=== PATIENT | female | born 1950 | race Caucasian/White ===

== ENCOUNTER 2018-03-17 03:58 | Inpatient (IN) | payer OTHER, BC ==
--- NOTE | 2018-03-17 04:40 | PDOC ---
History of Present Illness - General Chief Complaint: Pain Stated Complaint: PAIN RIGHT SIDE Time Seen by Provider: 03/17/18 04:22 - History of Present Illness Initial Comments: 03/17/18 04:29 67 yo F with h/o HTN, cholecystectomy, chronic R hip pain, who p/w with 1 week of R sided abdominal, flank, and posterior back pain. States that pain is worse with pressure, and she has to sleep in erect position leaning forward. Also endorses 3 days of BL leg swelling. Reports daily Advil use and Tramadol TID, with no improvement in pain. Nml bowel movements. Denies F/C, cough, hemoptysis, orthopnea, PND, leg swelling/pain, N/V, CP, SOB , abdominal pain, diarrhea, constipation, urinary complaints, hematuria, weakness, lightheadedness, sensory changes. Patient in ED (03/15/18) for similar presentation. CT AP ( 03/15/18) with known pulmonary nodules. No other significant findings. Patient was treated for UTI with Keflex. H/o HTN. Did not take Metoprolol today. Recently seen in ED PMHx: as noted above ROS: as noted above Past History - Past Medical History Allergies/Adverse Reactions: Allergies Allergy/AdvReac Type Severity Reaction Status Date / Time No Known Allergies Allergy Verified 03/17/18 04:26 Home Medications: Ambulatory Orders Metoprolol Tartrate 100 mg PO DAILY 03/17/18 Tramadol HCl 50 mg PO PRN 03/17/18 COPD: No HTN: Yes - Surgical History Cholecystectomy: Yes - Suicide/Smoking/Psychosocial Hx Smoking History: Never smoked Review of Systems - Review of Systems Comments:: 03/17/18 04:29 GENERAL/CONSTITUTIONAL: No fever or chills. No weakness. HEAD, EYES, EARS, NOSE AND THROAT: No change in vision. No ear pain or discharge. No sore throat. CARDIOVASCULAR: No chest pain or shortness of breath RESPIRATORY: No cough, wheezing, or hemoptysis. GASTROINTESTINAL: No nausea, vomiting, diarrhea or constipation. GENITOURINARY: No dysuria, frequency, or change in urination. MUSCULOSKELETAL: + R sided flank and back pain. No joint or muscle swelling or pain. No neck or back pain. SKIN: No rash NEUROLOGIC: No headache, vertigo, loss of consciousness, or change in strength/ sensation. ENDOCRINE: No increased thirst. No abnormal weight change HEMATOLOGIC/LYMPHATIC: No anemia, easy bleeding, or history of blood clots. ALLERGIC/IMMUNOLOGIC: No hives or skin allergy. *Physical Exam - Physical Exam Comments: 03/17/18 04:29 GENERAL: Awake, alert, and fully oriented, in no acute distress HEAD: No signs of trauma, normocephalic, atraumatic EYES: PERRLA, EOMI, sclera anicteric, conjunctiva clear ENT: Hearing grossly normal, nares patent, oropharynx clear without exudates. Moist mucosa NECK: Normal ROM, supple, no lymphadenopathy, JVD, or masses LUNGS: No distress, speaks full sentences, clear to auscultation bilaterally HEART: Regular rate and rhythm, normal S1 and S2, no murmurs, rubs or gallops, peripheral pulses normal and equal bilaterally. ABDOMEN: + R sided flank and posterior chest wall ttp. Soft, nontender, normoactive bowel sounds. No guarding, no rebound. No masses EXTREMITIES :BL LE edema. Normal inspection, Normal range of motion. No clubbing or cyanosis. SKIN: Warm, Dry, normal turgor, no rashes or lesions noted ED Treatment Course - LABORATORY CBC & Chemistry Diagram: 03/17/18 05:30 03/17/18 05:30 Medical Decision Making - Medical Decision Making 03/17/18 05:15 67 yo F with h/o HTN, cholecystectomy, chronic R hip pain, who p/w with sided abdominal, flank, and posterior back pain. VSS, AF, A&OX3. + Right sided flank and posterior chest wall ttp. + BL LE edema. Recent UTI ( 03/15/18). Low suspicion of pyelonephrits. Patient AF, non toxic appearing, and neg CVA ttp. Possible MSK etiology pain vs. biliary disease. Differential also includes PNA, pancreatitis, nephrolithiasis, CHF. ED Course: CBC,CMP, Lipase, BNP, Cardiac Pr. EKG, UA 03/17/18 06:42 CBC: Unremarkable UA: Neg EKG: Sinus bradycardia with nml interval duration and axis. Neg LUZMARIA, or STD. LVH. RUQ U/S pending. AST 44/110 ALK phosp: 143 Patient VSS, and signed out to day team. *DC/Admit/Observation/Transfer Diagnosis at time of Disposition: Right flank pain - Referrals Referrals: Alberto Floyd MD [Primary Care Provider] - - Patient Instructions Printed Discharge Instructions: DI for Flank Pain Additional Instructions: Please return to the emergency department with any new or worsening symptoms or concerns. Please follow up with your primary care physician within 72 hours. - Post Discharge Activity - Attestations Physician Attestion: 03/17/18 04:30 I attest to the information provided in this note.
[2018-03-17] MEDS ORDERED: KETOROLAC TROMETHAMINE 30 MG/1 ML VIAL IVPUSH ONE (05:14)
[2018-03-17] MEDS ORDERED: KETOROLAC TROMETHAMINE 30 MG/1 ML VIAL ONE (05:18)
[2018-03-17 06:14] LABS: BASO % 1.1 % (0-2.0); EOS % 2.1 % (0-4.5); HEMATOCRIT 36.8 % (32.4-45.2); HEMOGLOBIN 12.8 GM/dL (10.7-15.3); LYMPH % 25.8 % (8-40); MCH 31.1 pg (25.7-33.7); MCHC 34.9 g/dl (32.0-36.0); MEAN CELL VOLUME 89.1 fl (80-96); MEAN PLT VOLUME 8.4 fl (7.5-11.1); MONO % 9.7 % (3.8-10.2); NEUT % 61.3 % (42.8-82.8); PLATELET COUNT 288 K/MM3 (134-434); RBC 4.13 M/mm3 (3.60-5.2); RDW 13.7 % (11.6-15.6); WHITE BLOOD COUNT 6.6 K/mm3 (4.0-10.0)
[2018-03-17 06:18] LABS: URINE APPEARANCE CLEAR; URINE BILIRUBIN NEGATIVE (<2.0 mg/dL); URINE COLOR COLORLESS; URINE GLUCOSE (UA) NEGATIVE (NEGATIVE); URINE KETONE NEGATIVE (NEGATIVE); URINE LEUK ESTERASE NEGATIVE (NEGATIVE); URINE NITRITE NEGATIVE (NEGATIVE); URINE PROTEIN NEGATIVE (NEGATIVE); URINE UROBILINOGEN NEGATIVE mg/dL (0.2-1.0)
[2018-03-17 06:41] LABS: ANION GAP 9 (8-16); BILIRUBIN,TOTAL 0.4 mg/dL (0.2-1.0); BLOOD UREA NITROGEN 9 mg/dL (7-18); CALCIUM 8.3 mg/dL (8.5-10.1); CHLORIDE 93 mmol/L (98-107); CO2 26 mmol/L (21-32); CREATININE 0.8 mg/dL (0.55-1.02); GLUCOSE,RANDOM 99 mg/dL (74-106); POTASSIUM 3.4 mmol/L (3.5-5.1); SGOT/AST 44 U/L (15-37); SGPT/ALT 110 U/L (12-78); SODIUM 128 mmol/L (136-145); TOT PROT 6.9 g/dl (6.4-8.2)
[2018-03-17 06:42] LABS: ALK PHOS 183 U/L (45-117)
--- NOTE | 2018-03-17 06:43 | PDOC ---
Attending Attestation - Resident Resident Name: Ramrio Fung - ED Attending Attestation I have performed the following: I have examined & evaluated the patient, The case was reviewed & discussed with the resident, I agree w/resident's findings & plan - HPI HPI: 03/17/18 06:42 Pt comes with right flank pain. - Physicial Exam PE: 03/17/18 06:42 Agree with resident exam. 03/17/18 06:53 Pt has pain at the right flank. - Medical Decision Making 03/17/18 06:43 CBC normal; exam normal; CXR normal. vitals normal Chem pending. If chem is normal patient will be discharged home. <Lucia Brown - Last Filed: 03/17/18 06:53> Heart Score/ECG Review - ECG Intrepretation Comment:: 03/17/18 06:46 EKG performed at: 17 March 2018 at 6:37:55 Vent Rate 57 bpm MA interval 166 ms QRS duration 74 ms QT/QTc 446/434 ms P-R-T axes 31 -10 12 Sinus bradycardia Moderate voltage criteria for LVH, may be normal variant Borderline ECG <Fredo Acosta - Last Filed: 03/17/18 06:46> Attestations - Attestations 03/17/18 06:49 Documentation prepared by Fredo Acosta, acting as medical typist for Lucia Brown MD. <Fredo Acosta - Last Filed: 03/17/18 06:46>
[2018-03-17] MEDS ORDERED: METHOCARBAMOL 500 MG TABLET PO ONE (06:53)
[2018-03-17 07:02] LABS: INR 1.03 (0.82-1.09); PROTHROMBIN TIME (PATIENT) 11.6 SEC (9.7-13.0)
[2018-03-17] MEDS ORDERED: METHOCARBAMOL 500 MG TABLET ONE (07:13)
[2018-03-17] MEDS ORDERED: FUROSEMIDE 40 MG/4 ML INJECTABLE VIAL IVPUSH ONE (07:17)
[2018-03-17] MEDS ORDERED: VALSARTAN 80 MG TABLET (UD) PO ONE (07:18)
[2018-03-17] MEDS ORDERED: VALSARTAN 80 MG TABLET (UD) ONE (07:47)
[2018-03-17] MEDS ORDERED: FUROSEMIDE 40 MG/4 ML INJECTABLE VIAL ONE (07:48)
--- NOTE | 2018-03-17 08:44 | EKG ---
Test Reason : Blood Pressure : / mmHG Vent. Rate : 057 BPM Atrial Rate : 057 BPM P-R Int : 166 ms QRS Dur : 074 ms QT Int : 446 ms P-R-T Axes : 031 -10 012 degrees QTc Int : 434 ms SINUS BRADYCARDIA MODERATE VOLTAGE CRITERIA FOR LVH, MAY BE NORMAL VARIANT BORDERLINE ECG WHEN COMPARED WITH ECG OF 15-MAR-2018 11:11, VENT. RATE HAS DECREASED BY 32 BPM Confirmed by RODO REED, DANNIE ([id number]) on 03/17/2018 8:44:03 AM Referred By: Confirmed By:DANNIE KOEHLER MD
--- NOTE | 2018-03-17 09:58 | PDOC ---
*Physical Exam - Vital Signs Last Vital Signs Temp Pulse Resp BP Pulse Ox 97.9 F 67 14 145/67 98 03/17/18 07:25 03/17/18 09:37 03/17/18 09:37 03/17/18 09:37 03/17/18 09:37 ED Treatment Course - LABORATORY CBC & Chemistry Diagram: 03/17/18 05:30 03/17/18 05:30 - ADDITIONAL ORDERS Additional order review: Laboratory Results 03/17/18 03/17/18 03/17/18 05:30 05:30 05:30 PT with INR 11.60 INR 1.03 Sodium 128 L Potassium 3.4 L Chloride 93 L Carbon Dioxide 26 Anion Gap 9 BUN 9 Creatinine 0.8 Creat Clearance w eGFR > 60 Random Glucose 99 Calcium 8.3 L Total Bilirubin 0.4 D AST 44 H ALT 110 H Alkaline Phosphatase 183 H B-Natriuretic Peptide Total Protein 6.9 Albumin 3.0 L Lipase 181 Urine Color Urine Appearance Urine pH Ur Specific [place] Urine Protein Urine Glucose (UA) Urine Ketones Urine Blood Urine Nitrite Urine Bilirubin Urine Urobilinogen Ur Leukocyte Esterase 03/17/18 03/17/18 05:30 05:30 PT with INR INR Sodium Potassium Chloride Carbon Dioxide Anion Gap BUN Creatinine Creat Clearance w eGFR Random Glucose Calcium Total Bilirubin AST ALT Alkaline Phosphatase B-Natriuretic Peptide 2139.71 H Total Protein Albumin Lipase Urine Color Colorless Urine Appearance Clear Urine pH 7.0 Ur Specific [place] 1.002 Urine Protein Negative Urine Glucose (UA) Negative Urine Ketones Negative Urine Blood Negative Urine Nitrite Negative Urine Bilirubin Negative Urine Urobilinogen Negative Ur Leukocyte Esterase Negative 03/17/18 05:30 RBC 4.13 MCV 89.1 MCHC 34.9 RDW 13.7 MPV 8.4 Neutrophils % 61.3 Lymphocytes % 25.8 D Monocytes % 9.7 Eosinophils % 2.1 D Basophils % 1.1 - RADIOLOGY Radiology Studies Ordered: Category Date Time Status HIP & PELVIS-RIGHT [RAD] Stat Radiology 03/17/18 09:55 Ordered SPINE-LUMBAR SACRAL [RAD] Stat Radiology 03/17/18 09:55 Ordered DUPLEX VASCUL US-1 LEG [US] Stat Ultrasound 03/17/18 07:21 Completed - Medications Given in the ED: ED Medications Discontinued Medications Generic Name Dose Route Start Last Admin Trade Name Freq PRN Reason Stop Dose Admin Diphenhydramine HCl 50 mg 03/17/18 06:52 03/17/18 07:23 Benadryl Injection - IVPB 03/17/18 06:53 50 mg ONCE ONE Administration Furosemide 40 mg 03/17/18 07:17 03/17/18 08:00 Lasix Injection - IVPUSH 03/17/18 07:18 40 mg ONCE ONE Administration Ketorolac Tromethamine 30 mg 03/17/18 05:14 03/17/18 05:48 Toradol Injection - IVPUSH 03/17/18 05:15 30 mg ONCE ONE Administration Methocarbamol 1,000 mg 03/17/18 06:53 03/17/18 07:24 Robaxin - PO 03/17/18 06:54 1,000 mg ONCE ONE Administration Valsartan 80 mg 03/17/18 07:18 03/17/18 08:00 Diovan - PO 03/17/18 07:19 80 mg ONCE ONE Administration *DC/Admit/Observation/Transfer Diagnosis at time of Disposition: Right flank pain - Discharge Dispostion Decision to Admit order: Yes - Referrals Referrals: Alberto Floyd MD [Primary Care Provider] - - Patient Instructions Printed Discharge Instructions: DI for Flank Pain Additional Instructions: Please return to the emergency department with any new or worsening symptoms or concerns. Please follow up with your primary care physician within 72 hours. - Post Discharge Activity
[2018-03-17 13:25] VITALS: BMI 40.0
[2018-03-17] MEDS ORDERED: PNEUMOC 13-VAL CONJ-DIP CRM/PF 0.5 ML DISP.SYRIN IM ONE (16:00)
[2018-03-17] MEDS: PANTOPRAZOLE 40 MG TABLET (FP) PO SCH (18:21)
[2018-03-17] MEDS: ENOXAPARIN NA (PORCINE) 40 MG/0.4 ML DISP.SYRIN SQ SCH (18:21)
--- NOTE | 2018-03-17 18:23 | HP ---
Admitting History and Physical - Admission Chief Complaint: Rt flank pain/B/L leg swelling/ History Source: Patient Limitations to Obtaining History: No Limitations - Past Medical History Cardiovascular: Yes: HTN Hepatobiliary: Yes: Other (S/P cholecytectomy) Musculoskeletal: Yes: Chronic low back pain - Past Surgical History Past Surgical History: Yes: Cholecystectomy - Smoking History Smoking history: Never smoked Have you smoked in the past 12 months: No - Alcohol/Substance Use Hx Alcohol Use: No Home Medications - Allergies Allergies/Adverse Reactions: Allergies Allergy/AdvReac Type Severity Reaction Status Date / Time No Known Allergies Allergy Verified 03/17/18 04:26 - Home Medications Home Medications: Ambulatory Orders Metoprolol Tartrate 100 mg PO DAILY 03/17/18 Tramadol HCl 50 mg PO PRN 03/17/18 Review of Systems - Review of Systems Constitutional: reports: Malaise Gastrointestinal: reports: Abdominal Pain (Rt Flank pain) Musculoskeletal: reports: Back Pain Neurological: reports: Weakness Physical Examination Vital Signs: Vital Signs Temperature 98.1 F 03/17/18 16:28 Pulse Rate 68 03/17/18 16:28 Respiratory Rate 18 03/17/18 16:28 Blood Pressure 181/84 03/17/18 16:28 O2 Sat by Pulse Oximetry (%) 97 03/17/18 13:50 Constitutional: Yes: Anxious Eyes: Yes: Conjunctiva Clear, EOM Intact HENT: Yes: Atraumatic, Normocephalic Neck: Yes: Supple, Trachea Midline Cardiovascular: Yes: Regular Rate and Rhythm Respiratory: Yes: Regular, CTA Bilaterally Gastrointestinal: Yes: Normal Bowel Sounds (Rt Flank pain) Musculoskeletal: Yes: Joint Stiffness Edema: Yes Edema: LLE: 2+, RLE: 2+ Neurological: Yes: Alert, Oriented, Cran Nerves II-XII Intact Labs: CBC, BMP 03/17/18 05:30 03/17/18 05:30 Problem List - Problems (1) CHF (congestive heart failure), NYHA class II Code(s): I50.9 - HEART FAILURE, UNSPECIFIED (2) Right flank pain Code(s): R10.9 - UNSPECIFIED ABDOMINAL PAIN (3) Back pain Code(s): M54.9 - DORSALGIA, UNSPECIFIED (4) HTN (hypertension) Code(s): I10 - ESSENTIAL (PRIMARY) HYPERTENSION (5) Pulmonary nodule Code(s): R91.1 - SOLITARY PULMONARY NODULE (6) Hyponatremia Code(s): E87.1 - HYPO-OSMOLALITY AND HYPONATREMIA (7) Hypokalemia Code(s): E87.6 - HYPOKALEMIA Assessment/Plan (1) CHF (congestive heart failure), NYHA class II Code(s): I50.9 - HEART FAILURE, UNSPECIFIED (2) Right flank pain Code(s): R10.9 - UNSPECIFIED ABDOMINAL PAIN (3) Back pain Code(s): M54.9 - DORSALGIA, UNSPECIFIED (4) HTN (hypertension) Code(s): I10 - ESSENTIAL (PRIMARY) HYPERTENSION (5) Pulmonary nodule Code(s): R91.1 - SOLITARY PULMONARY NODULE (6) Hyponatremia Code(s): E87.1 - HYPO-OSMOLALITY AND HYPONATREMIA (7) Hypokalemia Code(s): E87.6 - HYPOKALEMIA Pt will have Xray of L/S spine/ Rt HIp Xray CT chest CT abddomen with out contrast to R/O Malignacy
[2018-03-17] MEDS ORDERED: traMADol HCL 50 MG TABLET PO SCH (19:00)
[2018-03-17] MEDS ORDERED: POTASSIUM CHLORIDE TABS 20 MEQ TABLET.ER (FP) PO ONE (21:00)
[2018-03-17] MEDS: traMADol HCL 50 MG TABLET PO PRN (21:31)
[2018-03-17] MEDS ORDERED: SODIUM PHOSPHATE/NA BIPHOS 133 ML ENEMA RC ONE (22:45)
[2018-03-17] MEDS ORDERED: MAGNESIUM HYDROX 2400MG/30ML ORAL SUSPENSION 30 ML CUP PO ONE (22:45)
[2018-03-18] MEDS ORDERED: POTASSIUM CHLORIDE TABS 20 MEQ TABLET.ER (FP) PO ONE (06:00)
[2018-03-18 09:01] LABS: CHLORIDE 95 mmol/L (98-107); POTASSIUM 3.7 mmol/L (3.5-5.1); SODIUM 130 mmol/L (136-145)
[2018-03-18 09:14] LABS: HEMATOCRIT 38.2 % (32.4-45.2); HEMOGLOBIN 13.1 GM/dL (10.7-15.3); MCH 30.8 pg (25.7-33.7); MCHC 34.4 g/dl (32.0-36.0); MEAN CELL VOLUME 89.5 fl (80-96); MEAN PLT VOLUME 8.9 fl (7.5-11.1); PLATELET COUNT 311 K/MM3 (134-434); RBC 4.26 M/mm3 (3.60-5.2); RDW 13.5 % (11.6-15.6); WHITE BLOOD COUNT 10.8 K/mm3 (4.0-10.0)
[2018-03-18] MEDS: traMADol HCL 50 MG TABLET PO PRN ×2 (09:18→22:31)
[2018-03-18 09:34] LABS: AMYLASE 31 U/L (25-115); ANION GAP 12 (8-16); BLOOD UREA NITROGEN 9 mg/dL (7-18); CALCIUM 8.2 mg/dL (8.5-10.1); CO2 23 mmol/L (21-32); CREATININE 0.7 mg/dL (0.55-1.02); GLUCOSE,RANDOM 99 mg/dL (74-106); LIPASE 181 U/L (73-393); MAGNESIUM 1.9 mg/dL (1.8-2.4); N-TERMINAL BNP 2307.01 pg/ml (5-125)
[2018-03-18] MEDS: PANTOPRAZOLE 40 MG TABLET (FP) PO SCH (10:50)
[2018-03-18] MEDS: ENOXAPARIN NA (PORCINE) 40 MG/0.4 ML DISP.SYRIN SQ SCH (10:50)
[2018-03-18 11:41] LABS: PLATELET ESTIMATE ADEQUATE
[2018-03-18] MEDS: FUROSEMIDE 40 MG TABLET (FP) PO SCH (11:48)
[2018-03-18] MEDS: DOCUSATE SODIUM 100 MG CAPSULE (FP) PO SCH (11:49)
--- NOTE | 2018-03-18 17:17 | PN ---
Progress Note, Physician History of Present Illness: Pt had CT Abdomen and Pelvis/CT chest Pt is on Hyponitremia workup/R/O Malignacy Pt is having severe Rt Hip pain/Rt Flank pain/ Back pain B/L Leg swelling - Current Medication List Current Medications: Active Medications Docusate Sodium (Colace -) 300 mg PO DAILY [facility] Last Admin: 03/18/18 11:49 Dose: 300 mg Enoxaparin Sodium (Lovenox -) 40 mg SQ DAILY [facility] Last Admin: 03/18/18 10:50 Dose: Not Given Furosemide (Lasix -) 40 mg PO DAILY [facility] Last Admin: 03/18/18 11:48 Dose: 40 mg Metoprolol Succinate (Toprol Xl -) 100 mg PO DAILY [facility] Last Admin: 03/18/18 10:50 Dose: 100 mg Pantoprazole Sodium (Protonix -) 40 mg PO DAILY [facility] Last Admin: 03/18/18 10:50 Dose: 40 mg Tramadol HCl (Ultram -) 50 mg PO Q8H PRN PRN Reason: PAIN 4-6 Last Admin: 03/18/18 09:18 Dose: 50 mg - Objective Vital Signs: Vital Signs Temperature 97.6 F 03/18/18 14:59 Pulse Rate 58 L 03/18/18 14:59 Respiratory Rate 20 03/18/18 14:59 Blood Pressure 138/76 03/18/18 14:59 O2 Sat by Pulse Oximetry (%) 96 03/18/18 10:00 Constitutional: Yes: No Distress Eyes: Yes: Conjunctiva Clear, EOM Intact HENT: Yes: Atraumatic, Normocephalic Neck: Yes: Supple, Trachea Midline Cardiovascular: Yes: Regular Rate and Rhythm, S1, S2 Respiratory: Yes: Regular, CTA Bilaterally Gastrointestinal: Yes: Normal Bowel Sounds, Soft Musculoskeletal: Yes: Joint Stiffness Edema: No Peripheral Pulses WNL: Yes Labs: CBC, BMP 03/18/18 07:45 03/18/18 07:45 INR, PTT INR 1.03 (0.82-1.09) 03/17/18 05:30 Problem List - Problems (1) CHF (congestive heart failure), NYHA class II Code(s): I50.9 - HEART FAILURE, UNSPECIFIED (2) Right flank pain Code(s): R10.9 - UNSPECIFIED ABDOMINAL PAIN (3) Back pain Code(s): M54.9 - DORSALGIA, UNSPECIFIED (4) HTN (hypertension) Code(s): I10 - ESSENTIAL (PRIMARY) HYPERTENSION (5) Pulmonary nodule Code(s): R91.1 - SOLITARY PULMONARY NODULE (6) Hyponatremia Code(s): E87.1 - HYPO-OSMOLALITY AND HYPONATREMIA (7) Hypokalemia Code(s): E87.6 - HYPOKALEMIA Assessment/Plan (1) CHF (congestive heart failure), NYHA class II Code(s): I50.9 - HEART FAILURE, UNSPECIFIED (2) Right flank pain Code(s): R10.9 - UNSPECIFIED ABDOMINAL PAIN (3) Back pain Code(s): M54.9 - DORSALGIA, UNSPECIFIED (4) HTN (hypertension) Code(s): I10 - ESSENTIAL (PRIMARY) HYPERTENSION (5) Pulmonary nodule Code(s): R91.1 - SOLITARY PULMONARY NODULE (6) Hyponatremia Code(s): E87.1 - HYPO-OSMOLALITY AND HYPONATREMIA (7) Hypokalemia Code(s): E87.6 - HYPOKALEMIA Pt will have Xray of L/S spine/ Rt HIp Xray CT chest CT abddomen with out contrast to R/O Malignacy done today Result pending
[2018-03-19] MEDS ORDERED: MORPHINE SULFATE 2 MG/ML VIAL IVPUSH ONE (05:25)
[2018-03-19] MEDS ORDERED: hydrALAZINE HCL 20 MG/ML VIAL IVPUSH ONE (06:00)
[2018-03-19 08:14] LABS: EOS % 3.7 % (0-4.5); HEMATOCRIT 40.3 % (32.4-45.2); HEMOGLOBIN 13.6 GM/dL (10.7-15.3); LYMPH % 29.8 % (8-40); MCH 30.5 pg (25.7-33.7); MCHC 33.8 g/dl (32.0-36.0); MEAN CELL VOLUME 90.3 fl (80-96); MEAN PLT VOLUME 8.1 fl (7.5-11.1); MONO % 11.2 % (3.8-10.2); NEUT % 54.3 % (42.8-82.8); PLATELET COUNT 374 K/MM3 (134-434); RBC 4.47 M/mm3 (3.60-5.2); RDW 14.1 % (11.6-15.6); WHITE BLOOD COUNT 7.7 K/mm3 (4.0-10.0)
[2018-03-19] MEDS ORDERED: PT OWN MED DRAWER 7, Y5N ONE (08:14)
[2018-03-19 08:19] LABS: ALBUMIN 3.2 g/dl (3.4-5.0); ANION GAP 10 (8-16); BILIRUBIN,DIRECT 0.2 mg/dL (0.0-0.2); BLOOD UREA NITROGEN 13 mg/dL (7-18); CALCIUM 8.5 mg/dL (8.5-10.1); CHLORIDE 94 mmol/L (98-107); CO2 28 mmol/L (21-32); CREATININE 0.9 mg/dL (0.55-1.02); GLUCOSE,RANDOM 94 mg/dL (74-106); POTASSIUM 4.3 mmol/L (3.5-5.1); SGOT/AST 19 U/L (15-37); SGPT/ALT 68 U/L (12-78); SODIUM 132 mmol/L (136-145)
[2018-03-19 08:21] LABS: ALK PHOS 160 U/L (45-117); BILIRUBIN,TOTAL 0.5 mg/dL (0.2-1.0); TOT PROT 7.3 g/dl (6.4-8.2)
[2018-03-19] MEDS: ENOXAPARIN NA (PORCINE) 40 MG/0.4 ML DISP.SYRIN SQ SCH (09:07)
[2018-03-19] MEDS: PANTOPRAZOLE 40 MG TABLET (FP) PO SCH (09:07)
[2018-03-19] MEDS: FUROSEMIDE 40 MG TABLET (FP) PO SCH (09:07)
[2018-03-19] MEDS: DOCUSATE SODIUM 100 MG CAPSULE (FP) PO SCH (09:07)
--- NOTE | 2018-03-19 10:30 | CONSULT ---
Consult Consult Specialty:: PM&R - History of Present Illness Chief Complaint: R flank pain History of Present Illness: This is a 67 year old woman with a medical history of HTN, cholecystectomy, chronic R hip pain due to severe OA (was told in 01/2017 that she needed to lose weight to undergo R THR), who initially presented to the ED around 03/15/18 with 2-3 days of worsening R flank pain. She was diagnosed with UTI for which she received Keflex and Tramadol. She initially felt better but then 03/17/18 the flank pain began worsening as well as developing fevers, and she returned to the ED at which point she was admitted. She is undergoing work-up for her flank pain, s/p CT chest/ abd/ pelvis with report pending. RLE doppler US was negative for DVT, and limited abd US showed diffuse liver infiltration. R hip XR showed severe R hip OA, with L hip OA as well. Lumbar XR showed multilevel DDD/ DJD. Physiatry is being consulted for further recommendations. - History Source History Provided By: Patient, Medical Record - Past Medical History Cardio/Vascular: Yes: HTN Hepatobiliary: Yes: Other (S/P cholecytectomy) Musculoskeletal: Yes: Chronic low back pain - Past Surgical History Past Surgical History: Yes: Cholecystectomy - Alcohol/Substance Use Hx Alcohol Use: No - Smoking History Smoking history: Never smoked Have you smoked in the past 12 months: No - Social History Usual Living Arrangement: Alone (lives alone in apartment without stairs, previously Independent in ADLs with [facility]) Home Medications - Allergies Allergies/Adverse Reactions: Allergies Allergy/AdvReac Type Severity Reaction Status Date / Time No Known Allergies Allergy Verified 03/17/18 04:26 - Home Medications Home Medications: Ambulatory Orders Metoprolol Tartrate 100 mg PO DAILY 03/17/18 Tramadol HCl 50 mg PO PRN 03/17/18 Family Disease History - Family Disease History Family History: Unremarkable (n/c) Review of Systems Findings/Remarks: denies chills, changes in vision/ hearing/ mood, CP, SOB, vomiting, diarrhea, dysuria/ hematuria, Notes fevers resolved, ongoing abdominal pain, resolved nausea, ongoing constipation, chronic intermittent RLE numbness which is at baseline, and back/ flank pain as above Physical Exam Vital Signs: Vital Signs Temperature 97.6 F 03/18/18 20:00 Pulse Rate 60 03/18/18 20:00 Respiratory Rate 17 03/18/18 21:00 Blood Pressure 135/64 03/18/18 20:00 O2 Sat by Pulse Oximetry (%) 98 03/18/18 21:00 Musculoskeletal: Yes: Other (General: calm F sitting EOB NAD N/M: B shoulder flexion to 120 degrees, 4+/5 BUE/ BLE except for 4/5 R HF; Pinprick Intact BUE/ BLE Extremities: 1+ BLE pitting edema, no B calf tenderness, L hip ER/ IR to 25 degrees without pain, R hip IR to 25 degrees and ER to 10 degrees with R buttock pain; +tenderness R lower thoracic paraspinals, no pain R lumbar paraspinals, mild pain in core extension relieved by flexion, negative R Slump) Labs: CBC, BMP 03/19/18 07:30 03/19/18 07:30 Imaging - Results X-ray: Pending, Report Reviewed (as per HPI) Cat Scan: Pending Ultrasound: Report Reviewed (as per HPI) Assessment/Plan Impression: 1) Deficits mobility/ ADLs 2) R flank pain, does not seem c/w thoracic paraspinal pain and without lumbar/ SI pain 3) B hip OA, severe on R 4) BLE pitting edema 5) UTI with 03/17/18 UCx negative 6) hx HTN 7) s/p cholecystectomy 8) Obesity 9) Up to date flu shot/ pneumovax 10) Constipation Recommendations: 1) PT for B hip stretching strengthening ROM, functional mobility 2) Falls, safety precautions 3) Cardiac precautions 4) Heat/ US/ TENS/ ice R hip/ groin/ buttock prn 5) Cortisone injections R hip have not helped in the past 6) Weight loss in progress, Nutrition consult to assist 7) DVT ppx: on Lovenox 8) Bowel regimen prn: on Colace 300mg daily, consider Senna 2 tabs qHS and Lactulose 30mL daily prn; she is also drinking prune juice 9) Skin protection: float heels, frequent turning 10) F/u CT reports and continue plan per primary team; if abdominal work-up negative, consider thoracic spine work-up (XR, CT, MRI) 11) Discharge planning: she will likely be able to return home once medically cleared Thank you for this referral.
[2018-03-19] MEDS: traMADol HCL 50 MG TABLET PO SCH ×2 (14:21→21:29)
--- NOTE | 2018-03-19 18:20 | PN ---
Progress Note, Physician History of Present Illness: Pt was seen Physiatry Pt is having severe Rt Hip pain/Rt Flank pain/ Back pain Pt will need Ortho Eval OP B/L Leg swelling - Current Medication List Current Medications: Active Medications Docusate Sodium (Colace -) 300 mg PO DAILY [facility] Last Admin: 03/19/18 09:07 Dose: 300 mg Enoxaparin Sodium (Lovenox -) 40 mg SQ DAILY [facility] Last Admin: 03/19/18 09:07 Dose: 40 mg Furosemide (Lasix -) 40 mg PO DAILY [facility] Last Admin: 03/19/18 09:07 Dose: 40 mg Metoprolol Succinate (Toprol Xl -) 100 mg PO DAILY [facility] Last Admin: 03/19/18 09:08 Dose: Not Given Pantoprazole Sodium (Protonix -) 40 mg PO DAILY [facility] Last Admin: 03/19/18 09:07 Dose: 40 mg Tramadol HCl (Ultram -) 50 mg PO TID [facility] Last Admin: 03/19/18 14:21 Dose: 50 mg - Objective Vital Signs: Vital Signs Temperature 98.0 F 03/19/18 14:45 Pulse Rate 61 03/19/18 14:45 Respiratory Rate 18 03/19/18 14:45 Blood Pressure 122/78 03/19/18 14:45 O2 Sat by Pulse Oximetry (%) 98 03/19/18 09:00 Constitutional: Yes: Mild Distress Eyes: Yes: Conjunctiva Clear, EOM Intact HENT: Yes: Atraumatic, Normocephalic Neck: Yes: Supple, Trachea Midline Cardiovascular: Yes: Regular Rate and Rhythm, S1, S2 Respiratory: Yes: Regular, CTA Bilaterally Gastrointestinal: Yes: Normal Bowel Sounds, Soft Musculoskeletal: Yes: Back Pain, Joint Stiffness Edema: Yes Peripheral Pulses WNL: Yes Neurological: Yes: Alert, Oriented, Cran Nerves II-XII Intact Labs: CBC, BMP 03/19/18 07:30 03/19/18 07:30 INR, PTT INR 1.03 (0.82-1.09) 03/17/18 05:30 Problem List - Problems (1) CHF (congestive heart failure), NYHA class II Code(s): I50.9 - HEART FAILURE, UNSPECIFIED (2) Right flank pain Code(s): R10.9 - UNSPECIFIED ABDOMINAL PAIN (3) Back pain Code(s): M54.9 - DORSALGIA, UNSPECIFIED (4) HTN (hypertension) Code(s): I10 - ESSENTIAL (PRIMARY) HYPERTENSION (5) Pulmonary nodule Code(s): R91.1 - SOLITARY PULMONARY NODULE (6) Hyponatremia Code(s): E87.1 - HYPO-OSMOLALITY AND HYPONATREMIA (7) Hypokalemia Code(s): E87.6 - HYPOKALEMIA (8) Ventral hernia Code(s): K43.9 - VENTRAL HERNIA WITHOUT OBSTRUCTION OR GANGRENE (9) Adnexal mass Code(s): N94.9 - UNSP COND ASSOC W FEMALE GENITAL ORGANS AND MENSTRUAL CYCLE Assessment/Plan (1) CHF (congestive heart failure), NYHA class II Code(s): I50.9 - HEART FAILURE, UNSPECIFIED (2) Right flank pain Code(s): R10.9 - UNSPECIFIED ABDOMINAL PAIN (3) Back pain Code(s): M54.9 - DORSALGIA, UNSPECIFIED (4) HTN (hypertension) Code(s): I10 - ESSENTIAL (PRIMARY) HYPERTENSION (5) Pulmonary nodule Code(s): R91.1 - SOLITARY PULMONARY NODULE (6) Hyponatremia Code(s): E87.1 - HYPO-OSMOLALITY AND HYPONATREMIA (7) Hypokalemia Code(s): E87.6 - HYPOKALEMIA Pt having Ventral hernia and Adenexal mass On CT
[2018-03-19] MEDS: LOSARTAN POTASSIUM 50 MG TABLET (FP) PO SCH (21:29)
[2018-03-20] MEDS: traMADol HCL 50 MG TABLET PO SCH ×2 (06:40→14:54)
[2018-03-20 08:57] LABS: ANION GAP 9 (8-16); BLOOD UREA NITROGEN 15 mg/dL (7-18); CHLORIDE 100 mmol/L (98-107); CO2 27 mmol/L (21-32); GLUCOSE,RANDOM 92 mg/dL (74-106); POTASSIUM 4.9 mmol/L (3.5-5.1); SODIUM 136 mmol/L (136-145)
[2018-03-20 09:01] LABS: EOS % 3.1 % (0-4.5); HEMATOCRIT 41.9 % (32.4-45.2); LYMPH % 33.9 % (8-40); MCH 30.3 pg (25.7-33.7); MCHC 33.5 g/dl (32.0-36.0); MEAN CELL VOLUME 90.4 fl (80-96); MEAN PLT VOLUME 8.1 fl (7.5-11.1); MONO % 12.1 % (3.8-10.2); NEUT % 49.9 % (42.8-82.8); PLATELET COUNT 379 K/MM3 (134-434); RBC 4.63 M/mm3 (3.60-5.2); WHITE BLOOD COUNT 7.6 K/mm3 (4.0-10.0)
[2018-03-20] MEDS: PANTOPRAZOLE 40 MG TABLET (FP) PO SCH (10:26)
[2018-03-20] MEDS: DOCUSATE SODIUM 100 MG CAPSULE (FP) PO SCH (10:27)
[2018-03-20] MEDS: ENOXAPARIN NA (PORCINE) 40 MG/0.4 ML DISP.SYRIN SQ SCH (10:27)
[2018-03-20] MEDS: LOSARTAN POTASSIUM 50 MG TABLET (FP) PO SCH (10:27)
[2018-03-20] MEDS: FUROSEMIDE 40 MG TABLET (FP) PO SCH (10:27)
[2018-03-20 15:16] VITALS: BP 134/75; PULSE 60; TEMP 98
--- NOTE | 2018-03-20 16:04 | DS ---
Physical Examination Vital Signs: Vital Signs Temperature 98.0 F 03/20/18 15:14 Pulse Rate 60 03/20/18 15:14 Respiratory Rate 20 03/20/18 15:14 Blood Pressure 134/75 03/20/18 15:14 O2 Sat by Pulse Oximetry (%) 98 03/19/18 09:00 Constitutional: Yes: Well Nourished, No Distress Eyes: Yes: Conjunctiva Clear, EOM Intact HENT: Yes: Atraumatic, Normocephalic Neck: Yes: Supple, Trachea Midline Cardiovascular: Yes: Regular Rate and Rhythm Respiratory: Yes: Regular, CTA Bilaterally Gastrointestinal: Yes: Normal Bowel Sounds, Soft Labs: CBC, BMP 03/20/18 06:00 03/20/18 06:45 Discharge Summary Reason For Visit: CHF,RIGHT FLANK PAIN Current Active Problems Adnexal mass (Acute) Back pain (Acute) CHF (congestive heart failure), NYHA class II (Acute) HTN (hypertension) (Acute) Hypokalemia (Acute) Hyponatremia (Acute) Pulmonary nodule (Acute) Right flank pain (Acute) Ventral hernia (Acute) - Instructions Diet, Activity, Other Instructions: Please return to the emergency department with any new or worsening symptoms or concerns. Please follow up with your primary care physician within 72 hours. Referrals: Alberto Floyd MD [Primary Care Provider] - Disposition: HOME - Home Medications Comprehensive Discharge Medication List: Ambulatory Orders Metoprolol Tartrate 100 mg PO DAILY 03/17/18 Tramadol HCl 50 mg PO PRN 03/17/18
== END 2018-03-20 17:04 | disposition home or self-care (01) | DRG 641 ==
LOC: JER 03:58 → JERBED 09:58 → J5S 12:43
PROVIDERS: ADMIT Internal Medicine; ATTEND Internal Medicine
DX: E87.1 Hypo-osmolality and hyponatremia (principal); Z68.41 Body mass index [BMI] 40.0-44.9, adult; I11.0 Hypertensive heart disease with heart failure; I50.9 Heart failure, unspecified; R10.9 Unspecified abdominal pain; K43.9 Ventral hernia without obstruction or gangrene; E66.9 Obesity, unspecified; M54.9 Dorsalgia, unspecified; R91.1 Solitary pulmonary nodule; E87.6 Hypokalemia; M16.0 Bilateral primary osteoarthritis of hip
CPT/HCPCS: 36415; 71045-TC-FY; 71250-TC; 72100-TC-FY; 73523-TC-FY; 74176-TC; 74177-TC; 76705-TC; 80048; 80053; 80076; 81003; 81015; 82150; 82550; 83605; 83690; 83735; 83880; 84484; 85025; 85610; 87086; 90670; 93005; 93010; 93306-TC; 93971-TC; 94010; 97116-GP; 97161-GP; 99283-25; 99285-25; J7030

== ENCOUNTER 2018-08-19 05:51 | Inpatient (IN) | payer OTHER, BC ==
[2018-08-05 14:52] VITALS: BMI 37.4
[2018-08-19] MEDS ORDERED: CELECOXIB 200 MG CAPSULE PO ONE (06:39)
[2018-08-19] MEDS ORDERED: GABAPENTIN 300 MG CAPSULE (FP) PO ONE (06:39)
[2018-08-19] MEDS ORDERED: oxyCODONE HCL 10 MG SUSTAINED ACTING TABLET PO ONE (06:39)
[2018-08-19] MEDS ORDERED: ceFAZolin SODIUM 1 GM VIAL ONE ×3 (07:19→08:26)
[2018-08-19] MEDS ORDERED: VANCOMYCIN 1,000 MG VIAL (RESTRICTED TO ID ONLY) ONE (07:19)
[2018-08-19] MEDS ORDERED: DEXAMETHASONE SOD PHOSPHATE/PF 10 MG/ML SDV ONE (07:43)
[2018-08-19] MEDS ORDERED: MIDAZOLAM HCL 2 MG/2 ML SINGLE DOSE VIAL ONE (07:43)
[2018-08-19] MEDS ORDERED: BUPIVACAINE HCL/PF (5 MG/ML) 30 ML VIAL IJ ONE (07:44)
[2018-08-19] MEDS ORDERED: LIDOCAINE 1% P/F 10 MG/ML VIAL ONE (07:44)
[2018-08-19] MEDS ORDERED: PROPOFOL 20 ML ONE ×2 (07:50)
[2018-08-19] MEDS ORDERED: TRANEXAMIC ACID 1000 MG/10 ML VIAL IVPUSH ONE (08:00)
[2018-08-19] MEDS ORDERED: CEFAZOLIN 2 GM in DEXTROSE 5%-WATER - 50 ML IVPB ONE (08:00)
[2018-08-19] MEDS ORDERED: TRANEXAMIC ACID 1000 MG/10 ML VIAL ONE ×2 (08:21→09:44)
--- NOTE | 2018-08-19 08:22 | HP ---
Satellite [facility] - Chief Complaint Chief Complaint: right hip pain - Past Medical History Allergies/Adverse Reactions: Allergies Allergy/AdvReac Type Severity Reaction Status Date / Time No Known Drug Allergies Allergy Verified 08/05/18 14:43 Cardiovascular: Yes: HTN Hepatobiliary: Yes: Other (S/P cholecytectomy) Musculoskeletal: Yes: Chronic low back pain - Current Medications Current Medications: Home Medications Medication Instructions Recorded Metoprolol Tartrate 100 mg PO DAILY 03/17/18 Gabapentin 300 mg PO TID 08/05/18 Ibuprofen [Advil -] 200 mg PO QID PRN 08/05/18 Satellite Physical Exam - Physical Examination Vital Signs: Vital Signs Period Temp Pulse Resp BP Sys/Hendricks Pulse Ox Last 24 Hr 98 F 72 18 152/76 General Appearance: Well Nourished, Well Developed, Alert & Oriented x3 ENT: Clear Lung: Normal air movement Heart: Regular rate & rhythm Extremities: Other (right hip- + ttp, decr rom, nvi xrays show grade 4 hip djd) Neurological: Intact, Alert, Oriented Satellite Impression/Plan - Impression/Plan Impression: right hip djd Operative Procedure: right pily thr Date to be Performed: 08/19/18
[2018-08-19] MEDS ORDERED: MAG HYDROX/AL HYDROX/SIMETH 30 ML UNIT-DOSE CUP PO PRN (10:03)
[2018-08-19] MEDS ORDERED: ONDANSETRON 4 MG/2 ML VIAL IVPUSH PRN ×2 (10:03→11:01)
[2018-08-19] MEDS ORDERED: MAGNESIUM HYDROX 2400MG/30ML ORAL SUSPENSION 30 ML CUP PO PRN (10:03)
--- NOTE | 2018-08-19 10:04 | OP ---
Operative Note - Note: Operative Date: 08/19/18 (yecenia) Pre-Operative Diagnosis: right hip djd Operation: right pily thr Post-Operative Diagnosis: Same as Pre-op Surgeon: Christiano Boss Shelver: Artie Salvador Anesthesia: Spinal, Local Specimens Removed: femoral head Estimated Blood Loss (mls): 100 Operative Report Dictated: Yes
[2018-08-19] MEDS ORDERED: LACTATED RINGERS SOLUTION 1,000 ML IV SCH (10:15)
[2018-08-19] MEDS ORDERED: oxyCODONE HCL 5 MG TABLET PO PRN (11:03)
--- NOTE | 2018-08-19 12:19 | SPEC ---
DATE OF OPERATION: 08/19/2018 PREOPERATIVE DIAGNOSIS: Degenerative joint disease, right hip. POSTOPERATIVE DIAGNOSIS: Degenerative joint disease, right hip. PROCEDURE PERFORMED: Right total hip replacement with robotic-assisted navigation (MAKOplasty). SURGICAL ATTENDING: Christiano Boss MD HARPOONER: KARLIE Al ANESTHESIA: Regional and spinal. CLOSURE: A Lennox total hip system with a 54 press-fit Trident II acetabular cup, a No. 6 Accolade II femoral stem, a 127-degree neck, a 36-mm +5 head, a standard polyethylene insert with a 10-degree lip in the superior-posterior quadrant, No. 1 Vicryl for fascia, 0 and 2-0 subcutaneous, and 3-0 Monocyrl subcuticular with skin glue for skin, 4-0 undyed Vicryl for pin sites. ESTIMATED BLOOD LOSS: Less than 100 mL. COMPLICATIONS: None. CONDITION: To the recovery room in stable condition. DESCRIPTION OF PROCEDURE: The patient was taken to the operating room on August 19, 2018. General and regional anesthesia was administered by the anesthesiologist. IV Kefzol and TXA were administered prophylactically prior to the case. The patient was placed in the lateral decubitus position will all prominences well-padded. The right hip area was prepped and draped in the usual sterile fashion. Using 3 small stab incisions over the iliac crest, 3 threaded pins were drilled in power fashion through the 2 tables of the crest. These pins were fastened and the navigation array for the Vj navigation system. Next, a 12 to 15-cm curved longitudinal incision over the posterolateral aspect of the greater trochanter was incised. Hemostasis was achieved with Bovie cautery. Sharp dissection was carried down to level of the fascia. The fascia was opened the entire length of the incision, spreading the fibers of the gluteus parker in the direction of origin. A Charnley retractor was placed in this layer. Care was taken not to impale the sciatic nerve. The short external rotators were detached off the insertion of the greater trochanter and peeled off the capsule. A posterior capsulotomy was then performed. A check point was malleted into the greater trochanter and a point on the inferior pole of the patella was obtained as well. These 2 points were used to assess the preoperative offset and limb lengths of the hip. The hip was then dislocated. The femoral neck was then osteotomized down to the appropriate level as directed by the navigation device. Anterior and posterior retractors were placed, exposing the acetabulum. A circumferential labral excision was performed. A check point was malleted into the acetabulum as well. Multiple sites inside the acetabulum and around the rim were utilized to register the acetabulum with the navigation device. An excellent registration of less than 0.5 mm was obtained. The hip was then reamed with the appropriate reamer down to the appropriate depth, with the appropriate orientation and version as assessed on our preoperative plan for this patient. The reamer was removed and the acetabulum was inspected to have good bleeding surfaces throughout. The real acetabular cup was then malleted down into place, with the holes in the appropriate position, until an excellent fixation was obtained. No screws were necessary. The navigation device ensured appropriate orientation and version, with the depth as predetermined. The appropriate liner was then clipped into place. Attention was directed to the femur. The proximal femur was prepared by use a box chisel, a canal finder and serial broaches until the broach achieved excellent rigidity in the proximal femur with the appropriate version being applied. A calcar planer was used to smooth off the calcar flush with the trial components. A trial reduction with the appropriate head was done, and the hip was reduced. The hip was taken through a range of motion from full extension with external rotation to marked flexion, and was stable at 90 degrees of flexion. It was stable to marked abduction and internal rotation, with a positive hang test and negative telescoping. Limb lengths were ascertained visually as well as with the navigation device to be within the targeted range for this patient. The trial component was removed. The real component was then malleted into place. The head was cold welded to the trunnion, and the hip was reduced. Range of motion, stability and limb lengths were as described in the trial component. Then the hip was pulse antibiotic irrigated. Vancomycin powder was placed in the hip joint. The capsule was closed. The fascia was then closed as well using number 1 Vicryl interrupted suture, 0 and 2-0 subcutaneous, 3-0 Monocyrl subcuticular with skin glue for skin. 4-0 undyed Vicryl was used to close the pin sites after the pins were removed. All check points were also removed. Sterile Aquacel dressing was applied. The patient was awakened from anesthesia and transferred into the supine position. Bilateral SCDs and an abduction pillow were placed. X-rays revealed excellent position of the components. The patient was transferred to the recovery room in stable condition, with no complications. Estimated blood loss was less than 100 mL. Marizol DE LOS [id number]
[2018-08-19] MEDS: ACETAMINOPHEN 325 MG TABLET (FP) PO SCH ×3 (15:12→23:23)
[2018-08-19] MEDS: GABAPENTIN 300 MG CAPSULE (FP) PO SCH ×2 (15:13→21:19)
[2018-08-19] MEDS: CEFAZOLIN 2 GM/D5W 2 GM/50 ML ML IVPB SCH ×2 (16:32→23:23)
[2018-08-19] MEDS: oxyCODONE HCL 5 MG TABLET PO PRN (18:57)
[2018-08-19] MEDS: SENNOSIDES/DOCUSATE COMBO (SENNA PLUS) TABLET (UD) PO SCH (21:19)
[2018-08-19] MEDS: oxyCODONE HCL 10 MG SUSTAINED ACTING TABLET PO SCH (21:19)
[2018-08-19] MEDS ORDERED: GABAPENTIN 300 MG CAPSULE (FP) PO SCH (22:00)
[2018-08-20] MEDS: ACETAMINOPHEN 325 MG TABLET (FP) PO SCH ×4 (05:50→23:36)
[2018-08-20] MEDS: GABAPENTIN 300 MG CAPSULE (FP) PO SCH ×3 (05:50→21:54)
[2018-08-20] MEDS: oxyCODONE HCL 5 MG TABLET PO PRN ×2 (08:26→13:52)
[2018-08-20] MEDS: ASPIRIN 325 MG TABLET PO SCH (08:26)
[2018-08-20 08:40] LABS: HEMATOCRIT 37.2 % (32.4-45.2); HEMOGLOBIN 12.3 GM/dl (10.7-15.3); MCH 31.2 pg (25.7-33.7); MEAN CELL VOLUME 94.5 fl (80-96); MEAN PLT VOLUME 9.2 fl (7.5-11.1); PLATELET COUNT 241 K/MM3 (134-434); RBC 3.94 M/mm3 (3.60-5.2); RDW 13.1 % (11.6-15.6); WHITE BLOOD COUNT 9.8 K/mm3 (4.0-10.8)
[2018-08-20] MEDS: PANTOPRAZOLE 40 MG TABLET (FP) PO SCH (09:09)
[2018-08-20] MEDS: MULTIVITAMINS (DAILY MVI) TABLET (FP) PO SCH (09:09)
[2018-08-20] MEDS: METOPROLOL TARTRATE 50 MG TABLET (FP) PO SCH (09:10)
[2018-08-20] MEDS: oxyCODONE HCL 10 MG SUSTAINED ACTING TABLET PO SCH ×2 (09:10→21:54)
[2018-08-20] MEDS: SENNOSIDES/DOCUSATE COMBO (SENNA PLUS) TABLET (UD) PO SCH ×2 (09:10→21:53)
--- NOTE | 2018-08-20 09:46 | PN ---
Progress Note (short form) - Note Progress Note: 68F POD1 s/p R THR under spinal anesthetic with peripheral nerve blocks for post operative pain relief. Pt states that pain is well controlled and reports no anesthetic complications. AVSS. Motor and sensory exam intact in bilateral lower extremities. Continue current regimen.
[2018-08-20] MEDS ORDERED: PATIENT'S OWN MEDICATION (NON-FORMULARY) (Metoprolol Tartrate [Metoprolol Tartrate] 100 MG PO SCH (10:00)
--- NOTE | 2018-08-20 12:21 | PN ---
Progress Note (short form) - Note Progress Note: Ortho Pt seen and examined s/p right iply thr pod #1 Selected Entries 08/20/18 11:00 Temperature 97.6 F Pulse Rate 70 Respiratory 18 Rate Blood Pressure 106/52 L Laboratory Tests 08/20/18 08:05 WBC 9.8 Hgb 12.3 Hct 37.2 Plt Count 241 dressing c/d/i, calf soft, nt nvi a/p PT hip precautions dvt ppx pain control d/c planning
[2018-08-21] MEDS: ACETAMINOPHEN 325 MG TABLET (FP) PO SCH ×3 (06:49→17:20)
[2018-08-21] MEDS: GABAPENTIN 300 MG CAPSULE (FP) PO SCH ×3 (06:49→22:12)
--- NOTE | 2018-08-21 08:02 | PN ---
Progress Note (short form) - Note Progress Note: Ortho Pt seen and examined s/p right pily thr pod #2- c/o pain Selected Entries 08/21/18 06:00 Temperature 97.0 F L Pulse Rate 64 Respiratory 18 Rate Blood Pressure 128/60 Laboratory Tests 08/21/18 07:58 WBC Pending Hgb Pending Hct Pending Plt Count Pending dressing c/d/i, calf soft, nt nvi a/p PT hip precautions dvt ppx pain control d/c home tomorrow if stable
[2018-08-21] MEDS: ASPIRIN 325 MG TABLET PO SCH (08:24)
[2018-08-21] MEDS: oxyCODONE HCL 5 MG TABLET PO PRN ×2 (08:27→22:13)
[2018-08-21 08:30] LABS: HEMATOCRIT 35.5 % (32.4-45.2); HEMOGLOBIN 11.8 GM/dl (10.7-15.3); MCH 31.3 pg (25.7-33.7); MCHC 33.3 g/dl (32.0-36.0); MEAN PLT VOLUME 9.3 fl (7.5-11.1); PLATELET COUNT 215 K/MM3 (134-434); RBC 3.78 M/mm3 (3.60-5.2); RDW 12.9 % (11.6-15.6); WHITE BLOOD COUNT 9.1 K/mm3 (4.0-10.8)
[2018-08-21] MEDS: SENNOSIDES/DOCUSATE COMBO (SENNA PLUS) TABLET (UD) PO SCH ×2 (09:07→22:13)
[2018-08-21] MEDS: METOPROLOL TARTRATE 50 MG TABLET (FP) PO SCH (09:07)
[2018-08-21] MEDS: MULTIVITAMINS (DAILY MVI) TABLET (FP) PO SCH (09:07)
[2018-08-21] MEDS: oxyCODONE HCL 10 MG SUSTAINED ACTING TABLET PO SCH ×2 (09:07→22:12)
[2018-08-21] MEDS: PANTOPRAZOLE 40 MG TABLET (FP) PO SCH (09:07)
[2018-08-22] MEDS: ACETAMINOPHEN 325 MG TABLET (FP) PO SCH ×2 (00:31→05:34)
[2018-08-22] MEDS: GABAPENTIN 300 MG CAPSULE (FP) PO SCH (05:34)
[2018-08-22] MEDS: oxyCODONE HCL 5 MG TABLET PO PRN (05:35)
[2018-08-22] MEDS: ASPIRIN 325 MG TABLET PO SCH (08:29)
[2018-08-22 08:44] VITALS: BP 129/94; PULSE 87; TEMP 98.4
--- NOTE | 2018-08-22 10:03 | PN ---
Progress Note (short form) - Note Progress Note: Ortho Pt seen and examined s/p right pily thr pod #3 Selected Entries 08/22/18 08:00 Temperature 98.4 F Pulse Rate 87 Respiratory 16 Rate Blood Pressure 129/94 Laboratory Tests 08/21/18 07:58 WBC 9.1 Hgb 11.8 Hct 35.5 Plt Count 215 dressing c/d/i, calf soft, nt nvi a/p PT hip precautions dvt ppx pain control d/c home today f/u in 1 week
--- NOTE | 2018-08-22 10:03 | DS ---
Physical Examination Vital Signs: Vital Signs Temperature 98.4 F 08/22/18 08:00 Pulse Rate 87 08/22/18 08:00 Respiratory Rate 16 08/22/18 08:00 Blood Pressure 129/94 08/22/18 08:00 O2 Sat by Pulse Oximetry (%) 98 08/21/18 21:00 Labs: CBC, BMP 08/21/18 07:58 Discharge Summary Reason For Visit: OSTEOARTHRITIS Procedures: Principal: right thr Hospital Course: admitted for elective right pily thr, uneventful post-op, stable for d/c Condition: Good - Instructions Diet, Activity, Other Instructions: Post-op Instructions-Total Hip Replacement Call the office for a follow-up appointment in 1 week - [phone] Aspirin 325mg daily for 6 weeks. Pain medication was sent into your pharmacy. Apply Graduated Compression Stockings (TEDs) to both lower extremities- remove daily for hygiene ONLY Apply Sequential Compression Device (SCDs) to both Lower extremities remove for PT and hygiene ONLY Apply cold packs to affected area for 15 minutes every 2 hours. Physical Therapist will come to your home for the first 5 days. You will be set up with outpatient PT at your first post-operative visit. Patient may ambulate as tolerated-encourage self care (at least every 2-3 hours while awake) with walker or cane Maintain Aquacel (waterproof) dressing to operative wound (will be removed by surgeon at first office visit) Shower with Aquacel dressing in place-if Aquacel integrity compromised, remove and apply dry sterile dressing and notify Orthopedist. DO NOT SHOWER unless Orthopedists approves without Aquacel dressing CONTACT THE OFFICE FOR ANY CHANGE IN YOUR CONDITION (for example-fever greater than 102 degrees, excessive bleeding from operative site, purulent drainage, severe swelling or pain) GO TO THE EMERGENCY ROOM IF THERE IS A MEDICAL EMERGENCY Hip Precautions: * Keep a rolled towel under affected heel while in bed or chair (to keep knee in extension) * Dependent upon approach: * Posterior - do not cross legs; do not sit on low chairs or toilets. * If you have any questions, please do not hesitate to call the office - . Referrals: Christiano Boss MD [Staff Physician] - Disposition: VNS/HOME HEALTH CARE - Home Medications Comprehensive Discharge Medication List: Ambulatory Orders Metoprolol Tartrate 100 mg PO DAILY 03/17/18 Gabapentin 300 mg PO TID 08/05/18 Ibuprofen [Advil -] 200 mg PO QID PRN 08/05/18 Aspirin [ASA -] 325 mg PO DAILY@0800 tablet 08/19/18 Oxycodone HCl/Acetaminophen [Percocet 5-325 mg Tablet -] 1 - 2 tab PO Q6H #50 tab MDD 8 08/19/18
[2018-08-22] MEDS: oxyCODONE HCL 10 MG SUSTAINED ACTING TABLET PO SCH (10:30)
[2018-08-22] MEDS: SENNOSIDES/DOCUSATE COMBO (SENNA PLUS) TABLET (UD) PO SCH (10:30)
[2018-08-22] MEDS: METOPROLOL TARTRATE 50 MG TABLET (FP) PO SCH (10:30)
[2018-08-22] MEDS: MULTIVITAMINS (DAILY MVI) TABLET (FP) PO SCH (10:31)
[2018-08-22] MEDS: PANTOPRAZOLE 40 MG TABLET (FP) PO SCH (10:31)
--- NOTE | 2018-08-22 17:56 | PATH ---
Surgical Pathology Report Patient Name: KORI CORTÉS Med. Rec. #: [id number] /Age/Gender: 1950 (Age: 68) / F Account: [id number] Location: [facility] MED-SURG Taken: 08/19/2018 Received: 08/19/2018 Reported: 08/22/2018 Physicians: Christiano Boss M.D. Specimen(s) Received RIGHT FEMORAL HEAD Clinical History Osteoarthritis right hip Final Diagnosis RIGHT FEMORAL HEAD, RESECTION: DEGENERATIVE JOINT DISEASE, RIGHT HIP. Electronically Signed Cheikh Martins M.D. Gross Description Received in formalin, labeled "right femoral head," is a 5.2 x 5.0 x 3.5 cm. femoral head with a 0.8 cm in length portion of femoral neck attached. The margin of resection is smooth. There is a 4.4 cm in greatest dimension area of eburnation present. The remaining articular surface is torre-yellow and diffusely granular and nodular. The underlying trabecular bone is yellow and hard. A pharmacy sales representative section is submitted in one cassette, following decalcification. 08/21/201808/21/2018
== END 2018-08-22 13:25 | disposition home health service (06) | DRG 470 ==
LOC: FM/S 05:51
PROVIDERS: ADMIT Orthopaedic Surgery; ATTEND Orthopaedic Surgery
PROC: 8E0W0CZ Robotic Assisted Procedure of Trunk Region, Open Approach (ICD-10-PCS; 2018-08-19)
PROC: 0SR90JA Replacement of Right Hip Joint with Synthetic Substitute, Uncemented, Open Approach (ICD-10-PCS; principal; 2018-08-19 08:39)
DX: M16.11 Unilateral primary osteoarthritis, right hip (principal); I10 Essential (primary) hypertension
CPT/HCPCS: 36415; 73502-TC-RT; 85027; 86803; 88304-TC; 88311-TC; 94760; 97116-GP; 97162-GP

== ENCOUNTER 2018-11-18 08:11 | Inpatient (IN) | payer OTHER, BC ==
[2018-11-13 13:46] VITALS: BMI 38.7
--- NOTE | 2018-11-18 08:10 | HP ---
Satellite [facility] - Chief Complaint Chief Complaint: left hip pain - Past Medical History Allergies/Adverse Reactions: Allergies Allergy/AdvReac Type Severity Reaction Status Date / Time No Known Drug Allergies Allergy Verified 11/13/18 13:38 Cardiovascular: Yes: HTN Hepatobiliary: Yes: Other (S/P cholecytectomy) Musculoskeletal: Yes: Chronic low back pain - Current Medications Current Medications: Home Medications Medication Instructions Recorded Metoprolol Tartrate 100 mg PO DAILY 03/17/18 Gabapentin 100 mg PO TID PRN 11/13/18 Satellite Physical Exam - Physical Examination General Appearance: Well Nourished, Well Developed, Alert & Oriented x3 ENT: Clear Lung: Normal air movement Heart: Regular rate & rhythm Extremities: Other (left hip- + ttp, decr rom, nvi xrays show grade 4 hip djd) Neurological: Intact, Alert, Oriented Satellite Impression/Plan - Impression/Plan Impression: left hip djd Operative Procedure: left pily thr Date to be Performed: 11/18/18
[2018-11-18] MEDS ORDERED: oxyCODONE HCL 10 MG SUSTAINED ACTING TABLET PO ONE (08:34)
[2018-11-18] MEDS ORDERED: GABAPENTIN 300 MG CAPSULE (FP) PO ONE (08:34)
[2018-11-18] MEDS ORDERED: TRANEXAMIC ACID 1000 MG/10 ML VIAL IVPUSH ONE (08:34)
[2018-11-18] MEDS ORDERED: CELECOXIB 200 MG CAPSULE PO ONE (08:34)
[2018-11-18] MEDS ORDERED: CEFAZOLIN 2 GM in DEXTROSE 5%-WATER - 50 ML IVPB ONE (08:34)
[2018-11-18] MEDS ORDERED: MIDAZOLAM HCL 2 MG/2 ML SINGLE DOSE VIAL ONE ×2 (10:02→11:33)
[2018-11-18] MEDS ORDERED: EPINEPHrine/PF 1 MG/1 ML (1:1,000) AMPULE ONE (10:02)
[2018-11-18] MEDS ORDERED: ROPIVACAINE HCL 0.5% 30ML VIAL ONE ×2 (10:02→10:05)
[2018-11-18] MEDS ORDERED: ceFAZolin SODIUM 1 GM VIAL ONE ×2 (10:44→11:20)
[2018-11-18] MEDS ORDERED: VANCOMYCIN 1,000 MG VIAL (RESTRICTED TO ID ONLY) ONE (10:44)
[2018-11-18] MEDS ORDERED: ONDANSETRON 4 MG/2 ML VIAL ONE (11:20)
[2018-11-18] MEDS ORDERED: DEXAMETHASONE SOD PHOSPHATE 4 MG/1 ML VIAL ONE (11:20)
[2018-11-18] MEDS ORDERED: ONDANSETRON 4 MG/2 ML VIAL IVPUSH PRN (11:24)
[2018-11-18] MEDS ORDERED: MAG HYDROX/AL HYDROX/SIMETH 30 ML UNIT-DOSE CUP PO PRN (11:24)
[2018-11-18] MEDS ORDERED: MAGNESIUM HYDROX 2400MG/30ML ORAL SUSPENSION 30 ML CUP PO PRN (11:24)
[2018-11-18] MEDS ORDERED: LACTATED RINGERS SOLUTION 1,000 ML IV SCH (11:30)
[2018-11-18] MEDS ORDERED: ePHEDrine SULFATE 50 MG/1 ML AMPULE ONE (11:42)
[2018-11-18] MEDS ORDERED: ACETAMINOPHEN 325 MG TABLET (FP) PO SCH (12:30)
--- NOTE | 2018-11-18 13:08 | OP ---
Operative Note - Note: Operative Date: 11/18/18 (yecenia) Pre-Operative Diagnosis: left hip djd Operation: left pily thr Post-Operative Diagnosis: Same as Pre-op Surgeon: Christiano Boss Statuary Painter: Artie Salvador Anesthesiologist/VARNISH INSPECTOR: Souleymane Stevens Anesthesia: Spinal, Local Specimens Removed: femoral head Estimated Blood Loss (mls): 150 Operative Report Dictated: Yes
[2018-11-18] MEDS: CEFAZOLIN 2 GM/D5W 2 GM/50 ML ML IVPB SCH (18:04)
[2018-11-18] MEDS: oxyCODONE HCL 5 MG TABLET PO PRN ×2 (18:10→19:23)
--- NOTE | 2018-11-18 19:28 | SPEC ---
DATE OF OPERATION: 11/18/2018 PREOPERATIVE DIAGNOSIS: Degenerative joint disease, left hip. POSTOPERATIVE DIAGNOSIS: Degenerative joint disease, left hip. PROCEDURE PERFORMED: Left total hip replacement with robotic-assisted navigation (MAKOplasty). SURGICAL ATTENDING: Christiano Boss MD REGIONAL CRA: KARLIE Al ANESTHESIA: Regional and spinal. CLOSURE: A Lennox total hip system with a 54 Trident II press-fit acetabulum, a No. 6 Accolade II press-fit stem, and a +5/36-mm metallic femoral head. No. 1 Vicryl for fascia, 0 and 2-0 for subcutaneous, 3-0 Monocryl subcuticular, skin glue for skin, 4-0 undyed Vicryl for pin sites. ESTIMATED BLOOD LOSS: 100 mL. COMPLICATIONS: None. CONDITION: To the recovery room in stable condition. DESCRIPTION OF PROCEDURE: The patient was taken to the operating room on November 18, 2018. General and regional anesthesia was administered by the anesthesiologist. IV Kefzol and TXA were administered prophylactically prior to the case. The patient was placed in the lateral decubitus position will all prominences well-padded. The left hip area was prepped and draped in the usual sterile fashion. Using 3 small stab incisions over the iliac crest, 3 threaded pins were drilled in power fashion through the 2 tables of the crest. These pins were fastened and the navigation array for the Vj navigation system. Next, a 12 to 15-cm curved longitudinal incision over the posterolateral aspect of the greater trochanter was incised. Hemostasis was achieved with Bovie cautery. Sharp dissection was carried down to level of the fascia. The fascia was opened the entire length of the incision, spreading the fibers of the gluteus parker in the direction of origin. A Charnley retractor was placed in this layer. Care was taken not to impale the sciatic nerve. The short external rotators were detached off the insertion of the greater trochanter and peeled off the capsule. A posterior capsulotomy was then performed. A check point was malleted into the greater trochanter and a point on the inferior pole of the patella was obtained as well. These 2 points were used to assess the preoperative offset and limb lengths of the hip. The hip was then dislocated. The femoral neck was then osteotomized down to the appropriate level as directed by the navigation device. Anterior and posterior retractors were placed, exposing the acetabulum. A circumferential labral excision was performed. A check point was malleted into the acetabulum as well. Multiple sites inside the acetabulum and around the rim were utilized to register the acetabulum with the navigation device. An excellent registration of less than 0.5 mm was obtained. The hip was then reamed with the appropriate reamer down to the appropriate depth, with the appropriate orientation and version as assessed on our preoperative plan for this patient. The reamer was removed and the acetabulum was inspected to have good bleeding surfaces throughout. The real acetabular cup was then malleted down into place, with the holes in the appropriate position, until an excellent fixation was obtained. No screws were necessary. The navigation device ensured appropriate orientation and version, with the depth as predetermined. The appropriate liner was then clipped into place. Attention was directed to the femur. The proximal femur was prepared by use a box chisel, a canal finder and serial broaches until the broach achieved excellent rigidity in the proximal femur with the appropriate version being applied. A calcar planer was used to smooth off the calcar flush with the trial components. A trial reduction with the appropriate head was done, and the hip was reduced. The hip was taken through a range of motion from full extension with external rotation to marked flexion and was stable at 90 degrees of flexion. It was stable to marked abduction and internal rotation, with a positive hang test and negative telescoping. Limb lengths were ascertained visually as well as with the navigation device to be within the targeted range for this patient. The trial component was removed. The real component was then malleted into place. The head was cold welded to the trunnion, and the hip was reduced. Range of motion, stability and limb lengths were as described in the trial component. Then the hip was pulse antibiotic irrigated. Vancomycin powder was placed in the hip joint. The capsule was closed. The fascia was then closed as well using No. 1 Vicryl interrupted suture, 0 and 2-0 subcutaneous, and 3-0 V-Loc for the skin, 4-0 undyed Vicryl was used to close the pin sites after the pins were removed. All check points were also removed. Sterile Aquacel dressing was applied. The patient was awakened from anesthesia and transferred into the supine position. Bilateral SCDs and an abduction pillow were placed. X-rays revealed excellent position of the components. The patient was transferred to the recovery room in stable condition with no complications. Estimated blood loss was less than 100 mL. Marizol DE LOS SANTOS/[id number]
[2018-11-18] MEDS: SENNOSIDES/DOCUSATE COMBO (SENNA PLUS) TABLET (UD) PO SCH (21:35)
[2018-11-18] MEDS: ACETAMINOPHEN 325 MG TABLET (FP) PO SCH (21:36)
[2018-11-18] MEDS: oxyCODONE HCL 10 MG SUSTAINED ACTING TABLET PO SCH (21:36)
[2018-11-18] MEDS: GABAPENTIN 300 MG CAPSULE (FP) PO SCH (21:36)
[2018-11-19] MEDS: oxyCODONE HCL 5 MG TABLET PO PRN ×4 (03:34→16:22)
[2018-11-19] MEDS: ACETAMINOPHEN 325 MG TABLET (FP) PO SCH ×4 (03:34→21:10)
[2018-11-19] MEDS: CEFAZOLIN 2 GM/D5W 2 GM/50 ML ML IVPB SCH (03:34)
[2018-11-19 07:53] LABS: HEMATOCRIT 34.7 % (32.4-45.2); HEMOGLOBIN 11.8 GM/dl (10.7-15.3); MCHC 34.1 g/dl (32.0-36.0); MEAN CELL VOLUME 91.1 fl (80-96); MEAN PLT VOLUME 8.7 fl (7.5-11.1); PLATELET COUNT 236 K/MM3 (134-434); RBC 3.81 M/mm3 (3.60-5.2); RDW 13.6 % (11.6-15.6); WHITE BLOOD COUNT 9.5 K/mm3 (4.0-10.8)
[2018-11-19] MEDS: ASPIRIN 325 MG TABLET PO SCH (08:44)
[2018-11-19] MEDS: SENNOSIDES/DOCUSATE COMBO (SENNA PLUS) TABLET (UD) PO SCH ×2 (10:11→21:11)
[2018-11-19] MEDS: MULTIVITAMINS (DAILY MVI) TABLET (FP) PO SCH (10:11)
[2018-11-19] MEDS: GABAPENTIN 300 MG CAPSULE (FP) PO SCH ×2 (10:12→21:11)
[2018-11-19] MEDS: PANTOPRAZOLE 40 MG TABLET (FP) PO SCH (10:12)
[2018-11-19] MEDS: oxyCODONE HCL 10 MG SUSTAINED ACTING TABLET PO SCH ×2 (10:12→21:11)
--- NOTE | 2018-11-19 10:25 | PN ---
Progress Note (short form) - Note Progress Note: Ortho Pt seen and examined s/p right pily thr pod #1 Selected Entries 11/19/18 10:00 Temperature 98 F Pulse Rate 81 Respiratory 18 Rate Blood Pressure 115/47 L Laboratory Tests 11/19/18 07:00 WBC 9.5 Hgb 11.8 Hct 34.7 Plt Count 236 dressing c/d/i, calf soft, nt nvi a/p PT dvt ppx pain control d/c planning for home
[2018-11-19] MEDS: METOPROLOL TARTRATE 50 MG TABLET (FP) PO SCH (13:34)
--- NOTE | 2018-11-19 14:57 | PN ---
Progress Note (short form) - Note Progress Note: POD #1 - s/p left total hip replacement makoplasty. VSS. Pt. doing well, completing rehab. No complaints. Good pain control. No apparent anesthetic complications noted. Continue current care.
[2018-11-20] MEDS: ACETAMINOPHEN 325 MG TABLET (FP) PO SCH ×4 (04:02→21:40)
[2018-11-20] MEDS: oxyCODONE HCL 5 MG TABLET PO PRN ×2 (06:06→19:18)
[2018-11-20 07:31] LABS: HEMATOCRIT 33.8 % (32.4-45.2); HEMOGLOBIN 11.4 GM/dl (10.7-15.3); MCH 30.6 pg (25.7-33.7); MCHC 33.7 g/dl (32.0-36.0); MEAN PLT VOLUME 8.7 fl (7.5-11.1); PLATELET COUNT 208 K/MM3 (134-434); RBC 3.72 M/mm3 (3.60-5.2); RDW 13.7 % (11.6-15.6)
--- NOTE | 2018-11-20 08:38 | PN ---
Progress Note (short form) - Note Progress Note: Ortho Pt seen and examined s/p right pily thr pod #2 Selected Entries 11/20/18 06:00 Temperature 98.1 F Pulse Rate 109 H Respiratory 20 Rate Blood Pressure 135/68 Laboratory Tests 11/20/18 07:00 WBC 9.0 Hgb 11.4 Hct 33.8 Plt Count 208 dressing c/d/i, calf soft, nt nvi a/p PT dvt ppx pain control d/c planning for home tomorrow if stable
[2018-11-20] MEDS: ASPIRIN 325 MG TABLET PO SCH (08:50)
[2018-11-20] MEDS: SENNOSIDES/DOCUSATE COMBO (SENNA PLUS) TABLET (UD) PO SCH ×3 (09:00→22:27)
[2018-11-20] MEDS: PANTOPRAZOLE 40 MG TABLET (FP) PO SCH (09:00)
[2018-11-20] MEDS: GABAPENTIN 300 MG CAPSULE (FP) PO SCH ×2 (09:00→21:41)
[2018-11-20] MEDS: METOPROLOL TARTRATE 50 MG TABLET (FP) PO SCH (09:00)
[2018-11-20] MEDS: MULTIVITAMINS (DAILY MVI) TABLET (FP) PO SCH (09:00)
[2018-11-20] MEDS: oxyCODONE HCL 10 MG SUSTAINED ACTING TABLET PO SCH ×2 (09:00→21:41)
[2018-11-21] MEDS: ACETAMINOPHEN 325 MG TABLET (FP) PO SCH (03:12)
[2018-11-21 05:56] VITALS: BP 143/68; PULSE 99; TEMP 98.7
[2018-11-21] MEDS: oxyCODONE HCL 5 MG TABLET PO PRN ×2 (06:23→10:07)
[2018-11-21] MEDS: ASPIRIN 325 MG TABLET PO SCH (08:01)
[2018-11-21] MEDS: METOPROLOL TARTRATE 50 MG TABLET (FP) PO SCH (10:06)
[2018-11-21] MEDS: GABAPENTIN 300 MG CAPSULE (FP) PO SCH (10:06)
[2018-11-21] MEDS: PANTOPRAZOLE 40 MG TABLET (FP) PO SCH (10:07)
[2018-11-21] MEDS: SENNOSIDES/DOCUSATE COMBO (SENNA PLUS) TABLET (UD) PO SCH (10:07)
[2018-11-21] MEDS: oxyCODONE HCL 10 MG SUSTAINED ACTING TABLET PO SCH (10:07)
[2018-11-21] MEDS: MULTIVITAMINS (DAILY MVI) TABLET (FP) PO SCH (10:08)
--- NOTE | 2018-11-21 11:17 | PN ---
Progress Note (short form) - Note Progress Note: Ortho Pt seen and examined s/p left pily thr pod #3 Selected Entries 11/21/18 05:54 Temperature 98.7 F Pulse Rate 99 H Respiratory 19 Rate Blood Pressure 143/68 Laboratory Tests 11/20/18 07:00 WBC 9.0 Hgb 11.4 Hct 33.8 Plt Count 208 dressing c/d/i, calf soft, nt nvi a/p PT dvt ppx pain control d/c home today f/u in 1 week
--- NOTE | 2018-11-21 11:19 | DS ---
Physical Examination Vital Signs: Vital Signs Temperature 98.7 F 11/21/18 05:54 Pulse Rate 99 H 11/21/18 05:54 Respiratory Rate 19 11/21/18 08:34 Blood Pressure 143/68 11/21/18 05:54 O2 Sat by Pulse Oximetry (%) 100 11/21/18 08:34 Labs: CBC, BMP 11/20/18 07:00 Discharge Summary Reason For Visit: OSTEOARTHRITIS Procedures: Principal: left thr Hospital Course: admitted for elective left pily thr, uneventful post-op, stable for d/c Condition: Good - Instructions Diet, Activity, Other Instructions: Post-op Instructions-Total Hip Replacement Call the office for a follow-up appointment in 1 week - [phone] Aspirin 325mg daily for 6 weeks. Pain medication was sent into your pharmacy. Apply Graduated Compression Stockings (TEDs) to both lower extremities- remove daily for hygiene ONLY Apply Sequential Compression Device (SCDs) to both Lower extremities remove for PT and hygiene ONLY Apply cold packs to affected area for 15 minutes every 2 hours. Physical Therapist will come to your home for the first 5 days. You will be set up with outpatient PT at your first post-operative visit. Patient may ambulate as tolerated-encourage self care (at least every 2-3 hours while awake) with walker or cane Maintain Aquacel (waterproof) dressing to operative wound (will be removed by surgeon at first office visit) Shower with Aquacel dressing in place-if Aquacel integrity compromised, remove and apply dry sterile dressing and notify Orthopedist. DO NOT SHOWER unless Orthopedists approves without Aquacel dressing CONTACT THE OFFICE FOR ANY CHANGE IN YOUR CONDITION (for example-fever greater than 102 degrees, excessive bleeding from operative site, purulent drainage, severe swelling or pain) GO TO THE EMERGENCY ROOM IF THERE IS A MEDICAL EMERGENCY Hip Precautions: * Keep a rolled towel under affected heel while in bed or chair (to keep knee in extension) * Dependent upon approach: * Posterior - do not cross legs; do not sit on low chairs or toilets. * If you have any questions, please do not hesitate to call the office - . Referrals: Christiano Boss MD [Staff Physician] - Disposition: VNS/HOME HEALTH CARE - Home Medications Comprehensive Discharge Medication List: Ambulatory Orders Metoprolol Tartrate 100 mg PO DAILY 03/17/18 Gabapentin 100 mg PO TID PRN 11/13/18 Aspirin [ASA -] 325 mg PO DAILY@0800 tablet 11/18/18 Oxycodone HCl/Acetaminophen [Percocet 5-325 mg Tablet -] 1 - 2 tab PO Q6H #50 tab MDD 8 11/18/18 Oxycodone HCl/Acetaminophen [Percocet 5-325 mg Tablet -] 1 - 2 tab PO Q6H #60 tab MDD 8 11/19/18
--- NOTE | 2018-11-24 14:10 | PATH ---
Surgical Pathology Report Patient Name: KORI CORTÉS Med. Rec. #: [id number] /Age/Gender: 1950 (Age: 68) / F Account: [id number] Location: [facility] Taken: 11/18/2018 Received: 11/18/2018 Reported: 11/24/2018 Physicians: Christiano Boss M.D. Specimen(s) Received LEFT FEMORAL HEAD Clinical History Left hip osteoarthritis Final Diagnosis FEMORAL HEAD, LEFT, TOTAL HIP REPLACEMENT: DEGENERATIVE JOINT DISEASE. Electronically Signed Alicia Santiago M.D. Gross Description Received in formalin, labeled "left femoral head," is a 4.7 x 4.7 x 4.1 cm. femoral head with a 1.2 cm in length portion of femoral neck attached. The margin of resection is smooth. There is a 3.0 cm in greatest dimension area of eburnation present. The remaining articular surface is torre-yellow and focally granular and nodular. The underlying trabecular bone is yellow and hard. A artist representative section is submitted in one cassette, following decalcification. 11/20/2018 [facility]/20/2018
== END 2018-11-21 12:50 | disposition home health service (06) | DRG 470 ==
LOC: FM/S 08:11
PROVIDERS: ADMIT Orthopaedic Surgery; ATTEND Orthopaedic Surgery
PROC: 8E0Y0CZ Robotic Assisted Procedure of Lower Extremity, Open Approach (ICD-10-PCS; 2018-11-18)
PROC: 0SRB0JZ Replacement of Left Hip Joint with Synthetic Substitute, Open Approach (ICD-10-PCS; principal; 2018-11-18 11:51)
DX: M16.12 Unilateral primary osteoarthritis, left hip (principal); I10 Essential (primary) hypertension; M54.5 Low back pain
CPT/HCPCS: 36415; 73502-TC-LT-FY; 85027; 88304-TC; 88311-TC; 94760; 97116-GP; 97162-GP